=== PATIENT | male | born 1985 | race Two or more races ===

== ENCOUNTER 2020-05-16 11:52 | Emergency (ER) | payer BC, MEDICAID ==
--- NOTE | 2020-05-16 12:17 | EDM.PDOC ---
ED HPI GENERAL MEDICAL PROBLEM - General Chief Complaint: Back Pain or Injury Stated Complaint: HURT BACK Time Seen by Provider: 05/16/20 11:52 Source of Information: Reports: Patient, EMS History Limitations: Reports: No Limitations - History of Present Illness INITIAL COMMENTS - FREE TEXT/NARRATIVE: Patient comes into the emergency department with EMS with complaints of back p ain. Patient states that he has had recent back discomfort approximately 3 years ago when he sustained a back injury very similar to what occurred to him last night. Patient states that he made a twisting motion and bent over and he felt a slipping/rubbing sensation that caused significant pain and distress. Patient states that when he woke up this morning the muscle spasms were so significant that they were debilitating and he was unable to get up he ended up needing to call 911 for transportation to the emergency department. Patient states that he does feel better when he is lying flat and not moving anything however if he goes to move the spasms are so significant and severe that he is unable to move. He states the sensations go bilaterally down his leg and bilaterally up his back.Patient denies any recent injuries or falls.Patient did take 2 Aleve prior to arrival.Patient denies any recent illnesses or fever. He also denies any symptoms of COVID-19. Patient states is been relatively healthy and has no other concerns or complaint Onset: Sudden Quality: Reports: Stabbing, Other (spasm) Severity: Severe Improves with: Reports: Immobilization Worsens with: Reports: Movement Context: Reports: Other Associated Symptoms: Reports: No Other Symptoms Lower Back Pain Score (Numeric/FACES): 10 - Related Data Allergies Allergy/AdvReac Type Severity Reaction Status Date / Time No Known Allergies Allergy Verified 05/16/20 12:14 Home Meds: Home Meds Sertraline [Zoloft] 50 mg PO DAILY 05/16/20 [History] Past Medical History Psychiatric History: Reports: Depression (Well controlled on Wellbutrin) - Past Surgical History Other Musculoskeletal Surgeries/Procedures:: knee surgery Social & Family History - Caffeine Use Caffeine Use: Reports: Coffee, Soda ED ROS GENERAL - Review of Systems Review Of Systems: Comprehensive ROS is negative, except as noted in HPI. Constitutional: Reports: No Symptoms HEENT: Reports: No Symptoms Respiratory: Reports: No Symptoms GI/Abdominal: Reports: No Symptoms : Reports: No Symptoms Skin: Reports: No Symptoms Neurological: Reports: No Symptoms Psychiatric: Reports: No Symptoms Hematologic/Lymphatic: Reports: No Symptoms ED EXAM,LOWER BACK PAIN/INJURY - Physical Exam Exam: See Below Exam Limited By: No Limitations General Appearance: Alert, WD/WN, No Apparent Distress Head: Atraumatic, Normocephalic Neck: Normal Inspection, Supple, Non-Tender, Full Range of Motion Respiratory/Chest: No Respiratory Distress, Lungs Clear, Normal Breath Sounds, No Accessory Muscle Use, Chest Non-Tender Cardiovascular: Normal Peripheral Pulses, Regular Rate, Rhythm, No Edema Back Exam: Muscle Spasm (severe spasm with movement. laying flat decreased pain ) Extremities: Normal Inspection, Normal Range of Motion, Non-Tender, No Pedal Edema, Normal Capillary Refill Neurological: Alert, CN II-XII Intact, No Motor/Sensory Deficits, Oriented x 3 Psychiatric: Normal Affect, Normal Mood Skin Exam: Warm, Dry, Intact Course - Vital Signs Last Recorded V/S: Last Vital Signs Temp 36.4 C 05/16/20 12:00 Pulse 66 05/16/20 12:00 Resp 16 05/16/20 12:00 BP 135/78 05/16/20 12:00 Pulse Ox 97 05/16/20 12:00 - Orders/Labs/Meds Orders: Active Orders 24 hr Category Date Time Status Lumbar Spine 2 or 3V [CR] Stat Exams 05/16/20 12:25 Ordered Meds: Medications Discontinued Medications Generic Name Dose Route Start Last Admin Trade Name Freq PRN Reason Stop Dose Admin Cyclobenzaprine HCl 2 packet 05/16/20 12:56 Take Home: Cyclobenzaprine 10 Mg, 4 Tab Pack PO 05/16/20 12:57 ONETIME ONE Diazepam 5 mg 05/16/20 12:02 05/16/20 12:07 Valium IVPUSH 05/16/20 12:03 5 mg STAT ONE Administration Ketorolac Tromethamine 2 packet 05/16/20 12:56 Take Home: Ketorolac 10 Mg, 4 Tab Pack PO 05/16/20 12:57 ONETIME ONE Departure - Departure Time of Disposition: 13:12 Disposition: Home, Self-Care 01 Condition: Good Clinical Impression: Back muscle spasm - Discharge Information *PRESCRIPTION DRUG MONITORING PROGRAM REVIEWED*: Not Applicable *COPY OF PRESCRIPTION DRUG MONITORING REPORT IN PATIENT JASON: Not Applicable Instructions: Back Injury Prevention, [id number], Muscle Cramps and Spasms, [id number], Cyclobenzaprine tablets, Ketorolac injection Referrals: Tavares Paez MD [Primary Care Provider] - Forms: ED Department Discharge Additional Instructions: 1. Rest 2. can take Flexeril for severe back spasms Up to 3 times a day 3. Can take Toradol 1 tablet every 6 hours for pain and swelling 4. Can use tylenol and ibuprofen as needed for pain and discomfort-But do not take ibuprofen if using Toradol/Ketorolac 5. Diet as tolerated 6. Activity as tolerated 7. Elevated the injured area above the level of the heart to decrease swelling and discomfort. 8. Use ice or heat 3-4 times a day at 20-minute intervals to help with any swelling and discomfort 9. Follow-up with your primary care provider symptoms continue or to progress 10. Follow with any questions or concerns 11. Discharge information has been provided regarding your injury The medication you have been prescribed today has a warning it may inhibit your response or action time. It is advised you do not drive or operate any device while using this medications. It is also advised this medication can not be shared or given to other individuals for it is against the law and one may be punished in the court of law. Sepsis Event Note (ED) - Focused Exam Vital Signs: Vital Signs Temp Pulse Resp BP Pulse Ox 05/16/20 12:00 36.4 C 66 16 135/78 97 - My Orders Last 24 Hours: My Active Orders 05/16/20 12:25 Lumbar Spine 2 or 3V [CR] Stat - Assessment/Plan Last 24 Hours: My Active Orders 05/16/20 12:25 Lumbar Spine 2 or 3V [CR] Stat Assessment:: 1. back pain 2. Lumbar back spasm Plan: 1. X-ray completed in the emergency department results reviewed with the patient 2. Ice Applied to the affected limb 3. Medication offered to the patient- Valium 5mg IV given- with great relief 4. Patient given take home pack of Flexeril and Toradol to help with muscle spasms and inflammation 5. Education regarding splinting, activity, [id number] medications, and follow-up care provided. 6. All questions and concerns addressed with the patient prior to discharge
[2020-05-16 12:21] VITALS: BP 135/78; PULSE 66
[2020-05-16] MEDS ORDERED: Take Home: Cyclobenzaprine 10 MG Tab, 4 Tab Pack PO ONE (12:56)
[2020-05-16] MEDS ORDERED: Take Home: Ketorolac 10 MG Tab, 4 Tab Pack PO ONE (12:56)
--- NOTE | 2020-05-16 13:34 | CR ---
[id number] RAD/RAD Lumbar Spine 2-3V EXAM: AP AND LATERAL LUMBAR SPINE. INDICATION: Back pain COMPARISON: No previous similar exam is available for comparison. FINDINGS: A 30% compression deformity of T12 is seen There is minimal loss of height of L1 and T11 There is question of Scheuermann's disease IMPRESSION: COMPRESSION DEFORMITY LOWER THORACIC SPINE CONSIDER MRI FOR FURTHER EVALUATION Ty De La Cruz MD 05/16/20 2162 Thank you for allowing us to participate in the care of your patient.
[2020-05-16] MEDS ORDERED: Diazepam 5 MG Tab ONE ×2 (14:00→14:17)
[2020-05-16] MEDS ORDERED: predniSONE 20 MG Tab PO ONE (14:50)
[2020-05-16] MEDS ORDERED: Take Home: predniSONE 20 MG, 2 Tab Pack PO ONE (14:51)
== END 2020-05-16 14:05 | disposition home or self-care (01) ==
LOC: VM.ED 11:52
DX: M62.830 Muscle spasm of back (principal); F32.9 Major depressive disorder, single episode, unspecified; Z79.899 Other long term (current) drug therapy
CPT/HCPCS: 72100; 96372; 96374; 99284; A9270; J3360

== ENCOUNTER 2023-04-08 13:13 | Emergency (ER) | payer MEDICAID ==
[2023-04-08 13:44] LABS: BASOPHILS PERCENT AUTO 0.3 % (0.2-1.2); EOSINOPHILS ABSOLUTE AUTO 0.2 x10^3/uL (0.0-0.5); EOSINOPHILS PERCENT AUTO 2.6 % (0.0-4.0); HEMATOCRIT 40.9 % (40.0-52.0); HEMOGLOBIN 14.8 g/dL (14.0-18.0); IMMATURE GRAN ABSOLUTE AUTO 0.01 x10^3/uL (0.00-0.07); LYMPHOCYTES ABSOLUTE AUTO 1.9 x10^3/uL (1.0-4.8); LYMPHOCYTES PERCENT AUTO 32.3 % (25.0-50.0); MEAN CORPUSCULAR HEMOGLOBIN 30.1 pg (26.0-32.0); MEAN CORPUSCULAR HGB CONC 36.2 g/dL (32.0-36.0); MEAN CORPUSCULAR VOLUME 83.3 fL (78.0-93.0); MONOCYTES ABSOLUTE AUTO 0.4 x10^3/uL (0.0-0.8); MONOCYTES PERCENT AUTO 7.4 % (2.0-11.0); NEUTROPHILS ABSOLUTE AUTO 3.3 x10^3/uL (1.8-7.7); NEUTROPHILS PERCENT AUTO 57.2 % (50.0-80.0); PLATELET COUNT,PLT 263 x10^3/uL (130-400); RED BLOOD CELL COUNT 4.91 x10^6/uL (4.5-6.0); WHITE BLOOD CELL COUNT,WBC 5.8 x10^3/uL (4.0-10.0)
[2023-04-08 14:01] LABS: A/G RATIO 1.52; ALANINE AMINOTRANSFERASE,ALT 27 U/L (16-63); ALBUMIN 4.1 g/dL (3.4-5.0); ALKALINE PHOSPHATASE 105 U/L (46-116); ASPARTATE AMNIOTRANSFERASE,AST 21 U/L (15-37); BILIRUBIN TOTAL 0.4 mg/dL (0.2-1.0); BLOOD UREA NITROGEN,BUN 7 mg/dL (7-18); CALCIUM 9.5 mg/dL (8.5-10.1); CARBON DIOXIDE,CO2 29 mmol/L (21-32); CHLORIDE,CL 96 mmol/L (98-107); CREATINE KINASE,CK 234 U/L (39-308); CREATININE 0.9 mg/dL (0.70-1.30); EST CRCL DRUG DOSING (CG) 111.29 mL/min; GLUCOSE RANDOM 103 mg/dL (70-99); LACTATE DEHYDROGENASE,LDH 168 U/L (85-227); POTASSIUM,K 4.8 mmol/L (3.5-5.1); PROTEIN TOTAL,TP 6.8 g/dL (6.4-8.2); SODIUM,NA 131 mmol/L (136-145)
[2023-04-08 14:02] LABS: ANION GAP 10.8 mmol/L (5-15); C-REACTIVE PROTEIN < 0.2 mg/dL (<=0.9); ESTIMATED GFR 112 mL/min (>=60)
[2023-04-08 14:28] VITALS: BP 147/89; PULSE 83
== END 2023-04-08 14:30 | disposition home or self-care (01) ==
LOC: VM.ED 13:13
DX: J40 Bronchitis, not specified as acute or chronic (principal); F17.290 Nicotine dependence, other tobacco product, uncomplicated
CPT/HCPCS: 36415; 71046; 80053; 82550; 83615; 84484; 85025; 86140; 93005; 93010; 99284; 99285